=== PATIENT | male | born 2000 | race Caucasian/White ===

== ENCOUNTER 2022-10-22 19:02 | Emergency (ER) | payer BC, MEDICAID ==
[~2022-10-22] VITALS: Ht 180.3 cm; Wt 77.6 kg
[2022-10-22 19:14] VITALS: BP 120/47
--- NOTE | 2022-10-22 19:20 | NUR ---
VA: RIGHT 20/70, LEFT 20/70, RUBINA EYES 20/70
--- NOTE | 2022-10-22 19:23 | NUR ---
PT AMB TO BED 11.
[2022-10-22] MEDS ORDERED: FLUORESCEIN OPTH STRIP 1 MG OP ONE (19:25)
[2022-10-22] MEDS ORDERED: TETRACAINE HCL/PF 0.5% OPTH 4 ML BTL OP ONE (19:25)
--- NOTE | 2022-10-22 19:35 | NUR ---
Patient resting in bed, A/Ox4, chest rise and fall symmetrical, no s/s of distress.
--- NOTE | 2022-10-22 19:39 | NUR ---
Dr. Logan examining patient.
--- NOTE | 2022-10-22 19:39 | NUR ---
Dr. Logan assessing patient and performing proceedure.
[2022-10-22] MEDS ORDERED: [UNRECOGNIZED DRUG - OTHER] OP (19:51)
[2022-10-22] MEDS ORDERED: KETO5SOL OP (19:51)
[2022-10-22 19:57] VITALS: BP 115/74
== END 2022-10-22 19:57 | disposition home or self-care (01) ==
LOC: MED 19:02
DX: S00.212A Abrasion of left eyelid and periocular area, initial encounter (principal); H57.11 Ocular pain, right eye; X58.XXXA Exposure to other specified factors, initial encounter; Y93.89 Activity, other specified; Y92.89 Other specified places as the place of occurrence of the external cause; Y99.8 Other external cause status
CPT/HCPCS: 99283